=== PATIENT | male | born 1960 | race Two or more races ===

== ENCOUNTER 2017-07-03 10:59 | Inpatient (IN) | payer MEDICAID ==
[~2017-07-03] VITALS: Ht 167.6 cm; Wt 63.6 kg
[2017-07-03 14:20] LABS: BASOPHIL % 0.1 % (0-2); PLATELET COUNT 275 x10^3mcL (130-400); RED CELL DISTRIBUTION WIDTH 12.2 % (11.5-14.5)
[2017-07-03 14:21] LABS: CALCIUM 8.8 mg/dL (8.5-10.1); CARBON DIOXIDE 25.1 mmol/L (21-32); CHLORIDE SERUM 98 mmol/L (98-107); GFR1 > 60 mL/min; GLUCOSE SERUM 282 mg/dL (74-106); POTASSIUM SERUM 4.1 mmol/L (3.5-5.1); SODIUM SERUM 134 mmol/L (136-145)
[2017-07-03 14:33] LABS: ALBUMIN 4.2 g/dL (3.4-5.0); ALKALINE PHOSPHATASE 80 U/L (46-116); ALT/SGPT 25 U/L (16-63); AMYLASE 56 U/L (25-115); AST/SGOT 14 U/L (15-37); BILIRUBIN TOTAL 0.7 mg/dL (0.20-1.00); CHOLESTEROL 164 mg/dL (<200); LIPASE 108 IU/L (73-393); T4(THYROXINE) 8.8 ug/dL (4.7-13.3)
[2017-07-03 14:35] LABS: HDL CHOLESTEROL 65 mg/dL (40-60); TOTAL PROTEIN, SERUM 8.6 g/dL (6.4-8.2)
[2017-07-03 14:59] LABS: microscopic required? YES; urine erythrocyte 1+ (NEGATIVE)
[2017-07-03 15:07] LABS: AMPHETAMINE QUAL UR NONE DETECTED (NEG <=1000)
[2017-07-03 16:21] LABS: MAGNESIUM 2.1 mg/dL (1.8-2.4); PHOSPHOROUS 2.3 mg/dL (2.5-4.9)
[2017-07-03 16:23] LABS: CHOLESTEROL/HDL RATIO 2.6
[2017-07-03 16:33] VITALS: BP 170/96
[2017-07-03 16:37] VITALS: Ht 167.6 cm; Wt 63.6 kg
[2017-07-03 17:33] LABS: FREE T4 1.27 ng/dL (0.76-1.46); FREE THYROXINE INDEX 3.1 ug/dL (1.4-4.5); T4(THYROXINE) 9.5 ug/dL (4.7-13.3)
[2017-07-03 17:38] VITALS: BP 157/85
[2017-07-03 17:43] VITALS: BP 170/96
[2017-07-03 17:45] VITALS: BP 164/86
[2017-07-03 19:29] LABS: T3 TOTAL 0.88 ng/mL
[2017-07-03 19:40] VITALS: BP 156/93
[2017-07-04] VITALS (7 sets, daily range): BP systolic 136–178; BP diastolic 71–97
[2017-07-04 06:55] LABS: CALCIUM 8.5 mg/dL (8.5-10.1); CARBON DIOXIDE 22.9 mmol/L (21-32); CHLORIDE SERUM 100 mmol/L (98-107); CREATININE SERUM 0.9 mg/dL (0.7-1.3); GFR1 > 60 mL/min; GLUCOSE SERUM 276 mg/dL (74-106); PHOSPHOROUS 2.4 mg/dL (2.5-4.9); POTASSIUM SERUM 3.6 mmol/L (3.5-5.1); SODIUM SERUM 134 mmol/L (136-145)
[2017-07-04 07:01] LABS: PLATELET COUNT 240 x10^3mcL (130-400); RED CELL DISTRIBUTION WIDTH 12.4 % (11.5-14.5)
[2017-07-04 07:06] LABS: BASOPHIL % 0 % (0-2)
[2017-07-05 07:03] LABS: BASOPHIL % 0.3 % (0-2); PLATELET COUNT 210 x10^3mcL (130-400); RED CELL DISTRIBUTION WIDTH 12.3 % (11.5-14.5)
[2017-07-05 08:04] LABS: CARBON DIOXIDE 25.6 mmol/L (21-32); CHLORIDE SERUM 103 mmol/L (98-107); CREATININE SERUM 0.8 mg/dL (0.7-1.3); GFR1 > 60 mL/min; GLUCOSE SERUM 189 mg/dL (74-106); MAGNESIUM 1.8 mg/dL (1.8-2.4); PHOSPHOROUS 2.3 mg/dL (2.5-4.9); POTASSIUM SERUM 3.6 mmol/L (3.5-5.1); SODIUM SERUM 138 mmol/L (136-145)
[2017-07-05 10:33] VITALS: BP 156/82
[2017-07-05 12:10] VITALS: BP 142/85
[2017-07-05 13:22] VITALS: BP 152/79
[2017-07-05 17:50] VITALS: BP 158/124
[2017-07-05 21:59] VITALS: BP 169/91
[2017-07-06 04:48] VITALS: BP 163/85
[2017-07-06 06:45] LABS: BASOPHIL % 0.4 % (0-2); PLATELET COUNT 186 x10^3mcL (130-400)
[2017-07-06 07:03] LABS: CALCIUM 8.3 mg/dL (8.5-10.1); CARBON DIOXIDE 24.3 mmol/L (21-32); CHLORIDE SERUM 101 mmol/L (98-107); CREATININE SERUM 0.8 mg/dL (0.7-1.3); GFR1 > 60 mL/min; GLUCOSE SERUM 204 mg/dL (74-106); PHOSPHOROUS 2.8 mg/dL (2.5-4.9); POTASSIUM SERUM 3.2 mmol/L (3.5-5.1); SODIUM SERUM 136 mmol/L (136-145)
[2017-07-06 09:27] VITALS: BP 142/72; BP 163/85
[2017-07-06 10:09] VITALS: BP 145/71
[2017-07-06 12:38] VITALS: BP 170/90
[2017-07-06 17:14] VITALS: BP 142/72
[2017-07-06] MEDS ORDERED: CLEOCIN HCL300 MG PO (17:26)
[2017-07-06] MEDS ORDERED: LEVAQUIN750 MG PO (17:26)
[2017-07-06] MEDS ORDERED: BD LACTINEX1.4 MG PO (17:26)
[2017-07-06] MEDS ORDERED: LISINOPRIL20 MG PO (18:50)
[2017-07-06] MEDS ORDERED: GOOD SENSE ASPI81 M3 PO (18:51)
[2017-07-06 20:55] VITALS: BP 174/98
[2017-07-07] VITALS (9 sets, daily range): BP systolic 140–174; BP diastolic 76–99
[2017-07-07 05:46] LABS: BASOPHIL % 0.4 % (0-2); PLATELET COUNT 215 x10^3mcL (130-400); RED CELL DISTRIBUTION WIDTH 11.9 % (11.5-14.5)
[2017-07-07 06:06] LABS: CALCIUM 8.7 mg/dL (8.5-10.1); CHLORIDE SERUM 101 mmol/L (98-107); CREATININE SERUM 0.9 mg/dL (0.7-1.3); GFR1 > 60 mL/min; GLUCOSE SERUM 172 mg/dL (74-106); POTASSIUM SERUM 3.5 mmol/L (3.5-5.1); SODIUM SERUM 138 mmol/L (136-145)
[2017-07-07] MEDS ORDERED: NOR5 PO (11:37)
[2017-07-07] MEDS ORDERED: ZES20 PO (11:37)
[2017-07-07] MEDS ORDERED: LAC PO (11:50)
[2017-07-07] MEDS ORDERED: BENZONATATE200 MG PO (12:05)
[2017-07-07] MEDS ORDERED: CYCLOBENZAPRINE5 MG PO (12:10)
== END 2017-07-07 13:05 | disposition home or self-care (01) | DRG 720 ==
LOC: ED 10:59 → DU 15:15 → MU 07-06 12:57
PROVIDERS: Emergency Medicine; Family Medicine
DX: A41.9 Sepsis, unspecified organism (principal); N17.0 Acute kidney failure with tubular necrosis; J96.01 Acute respiratory failure with hypoxia; E87.1 Hypo-osmolality and hyponatremia; E11.65 Type 2 diabetes mellitus with hyperglycemia; R31.9 Hematuria, unspecified; I16.0 Hypertensive urgency; J69.0 Pneumonitis due to inhalation of food and vomit; E87.6 Hypokalemia; E83.39 Other disorders of phosphorus metabolism; I70.0 Atherosclerosis of aorta; F17.210 Nicotine dependence, cigarettes, uncomplicated; I69.354 Hemiplegia and hemiparesis following cerebral infarction affecting left non-dominant side; Z83.3 Family history of diabetes mellitus; R19.7 Diarrhea, unspecified
CPT/HCPCS: 36600; 82962; 83880; 84439; 87804; 94150; 99406; C9113; G0480; J1956; J2543; J2930; J3490; J7030; J7613; J7644; Q0092; Q9967

== ENCOUNTER 2020-03-14 13:57 | Emergency (ER) | payer OTHER ==
[~2020-03-14] VITALS: Ht 177.8 cm; Wt 64.4 kg
[~2020-03-14 13:57] MED LIST: BD LACTINEX1.4 MG PO; BENZONATATE200 MG PO; CLEOCIN HCL300 MG PO; CYCLOBENZAPRINE5 MG PO; GOOD SENSE ASPI81 M3 PO; LAC PO; LEVAQUIN750 MG PO; LISINOPRIL20 MG PO; NOR5 PO; ZES20 PO
[2020-03-14 14:21] VITALS: Ht 177.8 cm; Wt 64.4 kg
[2020-03-14 17:45] LABS: PLATELET COUNT 188 x10^3mcL (130-400); RED CELL DISTRIBUTION WIDTH 12.4 % (11.5-14.5)
[2020-03-14 17:48] LABS: BASOPHIL % 0 % (0-2)
[2020-03-14 17:52] LABS: CALCIUM 8.9 mg/dL (8.5-10.1); CARBON DIOXIDE 24.7 mmol/L (21-32); CHLORIDE SERUM 102 mmol/L (98-107); CREATININE SERUM 1.3 mg/dL (0.7-1.3); GFR1 > 60 mL/min; GLUCOSE SERUM 243 mg/dL (74-106); POTASSIUM SERUM 4.5 mmol/L (3.5-5.1); SODIUM SERUM 139 mmol/L (136-145)
[2020-03-14 17:57] LABS: ALBUMIN 4.5 g/dL (3.4-5.0); ALKALINE PHOSPHATASE 73 U/L (46-116); ALT/SGPT 39 U/L (16-63); AST/SGOT 26 U/L (15-37); BILIRUBIN TOTAL 0.8 mg/dL (0.20-1.00); LIPASE 128 IU/L (73-393); TOTAL PROTEIN, SERUM 8.2 g/dL (6.4-8.2)
[2020-03-14 19:11] VITALS: BP 140/78
== END 2020-03-14 19:11 | disposition home or self-care (01) ==
LOC: ED 13:57
PROVIDERS: Emergency Medicine
DX: K52.9 Noninfective gastroenteritis and colitis, unspecified (principal); R11.2 Nausea with vomiting, unspecified; I10 Essential (primary) hypertension; E11.9 Type 2 diabetes mellitus without complications; Z86.73 Personal history of transient ischemic attack (TIA), and cerebral infarction without residual deficits
CPT/HCPCS: 82962; J0780; J2270; J2405; J7030; Q0092